=== PATIENT | female | born 1980 | race Caucasian/White ===

== ENCOUNTER 2020-01-29 11:24 | Emergency (ER) | payer OTHER, SELFPAY ==
[2020-01-29 11:28] VITALS: BP 148/87; PULSE 86; RESP 18; TEMP 36.4; O2SAT 100
--- NOTE | 2020-01-29 11:41 | ED.ABDPAIN ---
HPI - Abdominal Pain General Chief Complaint: Abdominal Pain Stated Complaint: hernia Time Seen by Provider: 01/29/20 11:40 History of Present Illness HPI narrative: 39 yo female with h/o incarcerated umbilical hernia presents to the ED for abdominal pain. She reports that while at work today she was lifting something above her head when she began to have severe pain from her umbilical hernia. It sounds like she then had vasovagal near syncope due to the pain. She was seen recently at another hospital for the hernia. It was thought to be incarcerated at that time. The surgeon was able to reduce it. She has not followed up. Her hernia is currently reduced and she is not having any pain. Related Data Home Medications Medication Instructions Recorded Confirmed No Home Medications 01/29/20 01/29/20 Allergies Allergy/AdvReac Type Severity Reaction Status Date / Time No Known Allergies Allergy Verified 01/29/20 11:50 Review of Systems Review of Systems: All systems reviewed & are unremarkable except as noted in HPI and below Constitutional: Constitutional: Denies chills and Denies fever(s) Cardiovascular: Cardiovascular: Denies chest pain Respiratory: Respiratory: Denies dyspnea Gastrointestinal: Gastrointestinal: Reports abdominal pain Genitourinary: Genitourinary: Denies dysuria Neurologic: Reports dizziness, Denies syncope and Denies weakness [facility] Past Medical History Medical History Umbilical hernia Social History Social History Gender identity (if verbalized by the patient): Female Exam Const: General: no acute distress and alert Nutritional Appearance: obese Orientation/consciousness: patient oriented x3 HENMT: Head: normal to inspection Resp: Effort & Inspection: normal respiratory effort Auscultation: clear to auscultation bilaterally Cardio: Rate: regular rate Rhythm: regular rhythm GI: Inspection: non-distended GI Palp: Yes Soft to palpation Other: Easily reducible umbilical hernia Skin: General skin exam: normal color Neuro: General: patient oriented x3 and moves all extremities Speech: normal speech Gait exam (Neuro): Normal gait present Course Vital Signs Vital signs: Vital Signs Temperature 36.4 C L 01/29/20 11:28 Pulse Rate 86 01/29/20 11:28 Respiratory Rate 18 01/29/20 11:28 Blood Pressure 148/87 H 01/29/20 11:28 Pulse Oximetry 100 01/29/20 11:28 Temperature 36.4 C L 01/29/20 11:28 Pulse Rate 86 01/29/20 11:28 Respiratory Rate 18 01/29/20 11:28 Blood Pressure 148/87 H 01/29/20 11:28 Pulse Oximetry 100 01/29/20 11:28 MDM - Abdominal Pain MDM Narrative Medical decision making narrative: Easily reducible umbilical hernia. I will give her a referal to general surgery. Medical Records Attestation: I reviewed the patient's medical records. Discharge Plan Discharge Clinical Impression: Umbilical hernia Qualifiers: Obstruction and gangrene presence: without obstruction or gangrene Qualified Code(s): K42.9 - Umbilical hernia without obstruction or gangrene Patient Disposition: Home, Self-Care Condition: Stable Instructions: Umbilical Hernia (ED) Prescriptions: No Action No Home Medications RF: 0 Follow-up/Referrals: Darnell Walsh MD [Physician] - PHYSICIAN,[employer] [Primary Care Provider] - Stand Alone Forms: Work/School Release IP
== END 2020-01-29 12:03 | disposition home or self-care (01) ==
PROVIDERS: Emergency Provider Emergency Medicine
DX: K42.9 Umbilical hernia without obstruction or gangrene (principal)
CPT/HCPCS: 99282